=== PATIENT | male | born 1965 | race Caucasian/White ===

== ENCOUNTER 2017-07-12 19:15 | Emergency (ER) | payer OTHER, BC ==
[~2017-07-12 19:15] MED LIST: AMOX TR-K CLV1 EAC4 PO; ATORVASTATIN CA40 MG PO; CARVEDILOL12.5 MG PO; CHILD ASPIRIN81 M1 PO; FLONASE16 G1 BOTH NARES; GABAPENTIN300 MG PO; KOMBIGLYZE XR1 EAC2 PO; LISINOPRIL2.5 MG PO; RANITIDINE HCL150 M1 PO; SPIRONOLACTONE25 MG PO; VITAMIN B-6100 MG PO; VITAMIN B125000 MCG PO; VITAMIN E400 UNIT PO; [UNRECOGNIZED DRUG - OTHER] PO
== END 2017-07-12 22:29 ==
LOC: TRA 19:15
DX: S09.93XA Unspecified injury of face, initial encounter (principal); S29.9XXA Unspecified injury of thorax, initial encounter; T14.8XXA Other injury of unspecified body region, initial encounter; I46.9 Cardiac arrest, cause unspecified; E11.9 Type 2 diabetes mellitus without complications; I10 Essential (primary) hypertension; E78.5 Hyperlipidemia, unspecified; K21.9 Gastro-esophageal reflux disease without esophagitis; Z95.810 Presence of automatic (implantable) cardiac defibrillator; Z79.82 Long term (current) use of aspirin; Z91.041 Radiographic dye allergy status; Z95.1 Presence of aortocoronary bypass graft; Z95.5 Presence of coronary angioplasty implant and graft; I50.9 Heart failure, unspecified; I25.2 Old myocardial infarction
CPT/HCPCS: 80048; 81003; 82150; 83605; 83690; 84484; 85025; 85610; 85730; 86850; 86900; 86901; 87040; 92950; 99281; 99285; G0480